=== PATIENT | female | born 1930 | race Caucasian/White ===

== ENCOUNTER 2022-01-10 16:15 | Inpatient (IN) | payer MEDICARE ==
[2022-01-10 16:51] LABS: #Monocytes 1.3 10x3/uL (0.0-1.1); #Neutrophils 12.6 10x3/uL (1.5-8.4); %Basophils 0.1 % (0.0-2.0); %Monocytes 8.4 % (0.0-10.0); Hemoglobin 11.7 g/dL (12.0-15.5); Mean Corpuscular HGB CONC 31.5 g/dL (32.0-36.0); Mean Corpuscular Hemoglobin 29.3 pg (27.0-33.0); Mean Platelet Volume 9.6 fl (7.4-10.4); Platelet Count 240 10x3/uL (150-450); RBC Distribution Width 13.2 % (11.5-14.5); White Blood Cell (WBC) Count 15.2 10x3/uL (3.5-10.5)
[2022-01-10 17:01] LABS: Anion Gap 16 mmol/L (10-20); BUN (Urea Nitrogen) 20 mg/dL (9.8-20.1); Calc. Creatinine Clearance 0 mL/min (70-130); Carbon Dioxide 25 mmol/L (23-31); Chloride 97 mmol/L (98-107); Potassium 4.7 mmol/L (3.5-5.1); Sodium 133 mmol/L (136-145)
[2022-01-10 17:02] LABS: ALT (SGPT) 26 U/L (8-55); AST (SGOT) 33 U/L (5-34); Albumin 4.2 g/dL (3.4-4.8); Alkaline Phosphatase 126 U/L (40-110); Bilirubin, Total 0.6 mg/dL (0.2-1.2); Calcium 9.9 mg/dL (7.8-10.44); Globulin 2.6 g/dL (2.4-3.5); Glucose 167 mg/dL (83-110); Protein, Total 6.8 g/dL (5.8-8.1)
[2022-01-10 17:36] LABS: Magnesium 2.1 mg/dL (1.6-2.6)
[2022-01-10 18:05] LABS: CKMB 3.4 ng/mL (0-6.6)
[2022-01-10] MEDS ORDERED: Furosemide 40 MG/4 ML VIAL ONE (18:11)
[2022-01-10] MEDS ORDERED: Enoxaparin Sodium 100 MG/ML SYRINGE ONE (18:25)
[2022-01-10] MEDS ORDERED: Nitroglycerin 0.4 MG TAB (25 Tab Bottle) SL PRN (20:35)
[2022-01-10 20:45] VITALS: BMI 31.4
[2022-01-10] MEDS ORDERED: Aspirin 325 MG TAB PO SCH (21:00)
[2022-01-10 21:17] LABS: Troponin I 0.426 ng/mL (< 0.028)
[2022-01-10 21:26] LABS: Magnesium 2.2 mg/dL (1.6-2.6)
[2022-01-10] MEDS ORDERED: Furosemide 40 MG/4 ML VIAL SLOW IVP SCH (21:30)
[2022-01-10] MEDS: Sotalol HCl 80 MG TAB PO SCH (21:32)
[2022-01-10] MEDS: Simvastatin 10 MG TAB PO SCH (21:33)
[2022-01-10] MEDS: Azelastine 137 MCG/Spray 30 ML NS SCH (21:33)
[2022-01-10] MEDS: Nitroglycerin 2% Ointment 1 INCH/1 GM Packet TOP SCH (21:58)
[2022-01-10 22:59] LABS: SARS-CoV-2 NAA Rapid Test Not Detected (NotDetected)
[2022-01-10 23:31] LABS: INR-International Normal Ratio 1.1; PTT 34.2 sec (22.0-33.0); Prothrombin Time 11.4 sec (9.5-12.1)
[2022-01-10 23:35] LABS: Troponin I 0.445 ng/mL (< 0.028)
[2022-01-11] MEDS ORDERED: Furosemide 40 MG/4 ML VIAL SLOW IVP SCH
[2022-01-11 05:23] LABS: #Monocytes 1.3 10x3/uL (0.0-1.1); #Neutrophils 6.4 10x3/uL (1.5-8.4); %Basophils 0.2 % (0.0-2.0); %Eosinophils 0.1 % (0.0-6.0); %Lymphocytes 19.3 % (18.0-47.0); %Monocytes 13.6 % (0.0-10.0); %Neutrophils 66.3 % (40.0-75.0); Hemoglobin 10.4 g/dL (12.0-15.5); Mean Corpuscular HGB CONC 32.9 g/dL (32.0-36.0); Mean Corpuscular Volume 91.1 fl (81.6-98.3); Mean Platelet Volume 9.7 fl (7.4-10.4); Platelet Count 190 10x3/uL (150-450); RBC Distribution Width 13.3 % (11.5-14.5); Red Blood Cell (RBC) Count 3.47 10x6/uL (3.90-5.03); White Blood Cell (WBC) Count 9.7 10x3/uL (3.5-10.5)
[2022-01-11 05:46] LABS: Anion Gap 15 mmol/L (10-20); BUN (Urea Nitrogen) 20 mg/dL (9.8-20.1); Calc. Creatinine Clearance 86 mL/min (70-130); Calcium 8.8 mg/dL (7.8-10.44); Carbon Dioxide 25 mmol/L (23-31); Chloride 100 mmol/L (98-107); Glucose 114 mg/dL (83-110); Potassium 3.9 mmol/L (3.5-5.1); Sodium 136 mmol/L (136-145)
[2022-01-11] MEDS: Enoxaparin Sodium 100 MG/ML SYRINGE SC SCH ×2 (05:55→15:53)
[2022-01-11] MEDS: Nitroglycerin 2% Ointment 1 INCH/1 GM Packet TOP SCH (06:07)
[2022-01-11] MEDS ORDERED: Losartan 25 MG TAB PO SCH (09:00)
[2022-01-11] MEDS: Sulfameth/Trimethoprim DS 800-160mg TAB PO SCH (09:53)
[2022-01-11] MEDS: Sotalol HCl 80 MG TAB PO SCH ×2 (09:53→20:47)
[2022-01-11] MEDS: Aspirin Chewable 81 MG TAB PO SCH ×2 (09:54→10:03)
[2022-01-11 12:02] LABS: Iron 28 ug/dL (50-170); Iron Binding Capacity, Total 280 mcg/dL (265-497)
[2022-01-11 14:56] LABS: Bilirubin Neg (Negative); Blood, Urine 10 (Negative); Clarity Clear (Clear); Glucose, Urine (Dipstick) Normal (Negative); Ketone, Urine Negative (Negative); Leukocyte 25 (Negative); Nitrite Negative (Negative); Protein, Urine (Dipstick) 15 mg/dl (Neg-Trace); Urobilinogen Normal mg/dL (Less than 2)
[2022-01-11 15:20] LABS: Bacteria/HPF 3+ HPF (None Seen); RBC/HPF 0-3 HPF (0-3); Squamous Epithelial 0-3 HPF (0-3); WBC/HPF 0-3 HPF (0-3)
[2022-01-11 15:21] LABS: Urine Culture Reflex Yes Yes
[2022-01-11] MEDS ORDERED: Enoxaparin Sodium 100 MG/ML SYRINGE ONE ×2 (15:47)
[2022-01-11] MEDS: Carvedilol 3.125 MG TAB PO SCH (15:51)
[2022-01-11 17:22] LABS: Vitamin D, 25 Hydroxy 33.7 ng/ml (> 30.0)
[2022-01-11] MEDS ORDERED: Promethazine 25 MG TAB PO SCH (20:00)
[2022-01-11] MEDS: Simvastatin 10 MG TAB PO SCH (20:48)
[2022-01-11] MEDS: Azelastine 137 MCG/Spray 30 ML NS SCH (20:49)
[2022-01-11] MEDS: Fluticasone Propionate Nasal Spray 16 gm Bottle NASAL SCH (21:08)
[2022-01-12] MEDS ORDERED: Furosemide 20 MG/2 ML VIAL SLOW IVP SCH (06:00)
[2022-01-12] MEDS: Enoxaparin Sodium 100 MG/ML SYRINGE SC SCH ×2 (06:33→16:49)
[2022-01-12] MEDS: Levothyroxine Sodium 50 MCG TAB PO SCH (06:34)
[2022-01-12] MEDS: Carvedilol 3.125 MG TAB PO SCH ×2 (09:01→16:49)
[2022-01-12] MEDS: Sulfameth/Trimethoprim DS 800-160mg TAB PO SCH (09:01)
[2022-01-12] MEDS: Sotalol HCl 80 MG TAB PO SCH ×2 (09:02→20:41)
[2022-01-12] MEDS: Aspirin Chewable 81 MG TAB PO SCH (09:03)
[2022-01-12] MEDS ORDERED: Iron Sucrose Complex 200 MG in Sodium Chloride 0.9% 100 ML IVPB SCH (09:30)
[2022-01-12] MEDS: Iron, Sodium Ferric Gluconate 250 MG in Sodium Chloride 0.9% 250 ML 250 ML IVPB SCH ×2 (12:16→15:16)
[2022-01-12 14:56] LABS: Hemoglobin 10.5 g/dL (12.0-15.5); Mean Corpuscular HGB CONC 32.2 g/dL (32.0-36.0); Mean Corpuscular Hemoglobin 29.5 pg (27.0-33.0); Mean Corpuscular Volume 91.6 fl (81.6-98.3); Platelet Count 194 10x3/uL (150-450); Red Blood Cell (RBC) Count 3.56 10x6/uL (3.90-5.03); White Blood Cell (WBC) Count 10.1 10x3/uL (3.5-10.5)
[2022-01-12 15:18] LABS: ALT (SGPT) 23 U/L (8-55); AST (SGOT) 26 U/L (5-34); Albumin 3.4 g/dL (3.4-4.8); Alkaline Phosphatase 95 U/L (40-110); Anion Gap 14 mmol/L (10-20); BUN (Urea Nitrogen) 28 mg/dL (9.8-20.1); Bilirubin, Total 0.5 mg/dL (0.2-1.2); Calc. Creatinine Clearance 76 mL/min (70-130); Calcium 8.7 mg/dL (7.8-10.44); Carbon Dioxide 27 mmol/L (23-31); Chloride 98 mmol/L (98-107); Globulin 2.7 g/dL (2.4-3.5); Glucose 135 mg/dL (83-110); Potassium 4.3 mmol/L (3.5-5.1); Protein, Total 6.1 g/dL (5.8-8.1); Sodium 135 mmol/L (136-145)
[2022-01-12] MEDS ORDERED: Iron, Sodium Ferric Gluconate 250 MG in Sodium Chloride 0.9% 250 ML 250 ML IVPB SCH (15:30)
[2022-01-12] MEDS ORDERED: Polyethylene Glycol 3350 17 GM Packet PO PRN (15:41)
[2022-01-12] MEDS ORDERED: cefTRIAXone\\ROCEPHIN 1 GM in Sodium Chloride 0.9% 100 ML IVPB SCH (16:00)
[2022-01-12] MEDS ORDERED: Polyethylene Glycol 3350 17 GM Packet PO SCH (16:00)
[2022-01-12] MEDS: Ondansetron ODT 4 MG TAB PO PRN (16:46)
[2022-01-12] MEDS: Furosemide 20 MG/2 ML VIAL SLOW IVP SCH (16:47)
[2022-01-12] MEDS: Azelastine 137 MCG/Spray 30 ML NS SCH (20:40)
[2022-01-12] MEDS: Fluticasone Propionate Nasal Spray 16 gm Bottle NASAL SCH (20:40)
[2022-01-12] MEDS: Simethicone Chewable 80 MG TAB PO SCH (20:41)
[2022-01-12] MEDS: Simvastatin 10 MG TAB PO SCH (20:41)
[2022-01-12] MEDS: cefTRIAXone\\ROCEPHIN 1 GM in Sodium Chloride 0.9% 100 ML IVPB SCH (20:42)
[2022-01-12] MEDS ORDERED: Floranex 1 GM Packet PO SCH (21:00)
[2022-01-12] MEDS ORDERED: LACTINEX 1 TAB PO SCH (21:45)
[2022-01-13 05:05] LABS: #Eosinphils 0.1 10x3/uL (0.0-0.5); #Monocytes 0.9 10x3/uL (0.0-1.1); #Neutrophils 5.4 10x3/uL (1.5-8.4); %Basophils 0.3 % (0.0-2.0); %Eosinophils 0.8 % (0.0-6.0); %Lymphocytes 16.5 % (18.0-47.0); %Monocytes 11.6 % (0.0-10.0); %Neutrophils 70.3 % (40.0-75.0); Hemoglobin 10.6 g/dL (12.0-15.5); Mean Corpuscular HGB CONC 32.5 g/dL (32.0-36.0); Mean Corpuscular Hemoglobin 30.1 pg (27.0-33.0); Mean Corpuscular Volume 92.6 fl (81.6-98.3); Mean Platelet Volume 10.3 fl (7.4-10.4); Platelet Count 181 10x3/uL (150-450); RBC Distribution Width 13.1 % (11.5-14.5); Red Blood Cell (RBC) Count 3.52 10x6/uL (3.90-5.03); White Blood Cell (WBC) Count 7.7 10x3/uL (3.5-10.5)
[2022-01-13 05:20] LABS: Anion Gap 15 mmol/L (10-20); BUN (Urea Nitrogen) 26 mg/dL (9.8-20.1); Calc. Creatinine Clearance 79 mL/min (70-130); Calcium 8.5 mg/dL (7.8-10.44); Carbon Dioxide 28 mmol/L (23-31); Chloride 99 mmol/L (98-107); Glucose 110 mg/dL (83-110); Potassium 3.7 mmol/L (3.5-5.1); Sodium 138 mmol/L (136-145)
[2022-01-13] MEDS: Furosemide 20 MG/2 ML VIAL SLOW IVP SCH (05:59)
[2022-01-13] MEDS: Levothyroxine Sodium 50 MCG TAB PO SCH (05:59)
[2022-01-13] MEDS: Enoxaparin Sodium 100 MG/ML SYRINGE SC SCH ×2 (06:00→19:17)
[2022-01-13] MEDS: LACTINEX 1 TAB PO SCH ×2 (08:45→20:50)
[2022-01-13] MEDS: Aspirin Chewable 81 MG TAB PO SCH (08:45)
[2022-01-13] MEDS: Polyethylene Glycol 3350 17 GM Packet PO SCH (08:45)
[2022-01-13] MEDS: Carvedilol 3.125 MG TAB PO SCH ×2 (08:45→17:15)
[2022-01-13] MEDS: Sotalol HCl 80 MG TAB PO SCH ×2 (08:46→20:50)
[2022-01-13] MEDS: Simethicone Chewable 80 MG TAB PO SCH ×3 (08:46→19:17)
[2022-01-13] MEDS ORDERED: Potassium Chloride 20 MEQ TAB PO SCH (12:00)
[2022-01-13] MEDS ORDERED: Spironolactone 25 MG TAB PO SCH (12:00)
[2022-01-13] MEDS ORDERED: Furosemide 20 MG TAB PO SCH (14:00)
[2022-01-13] MEDS: Ondansetron ODT 4 MG TAB PO PRN (19:17)
[2022-01-13] MEDS: cefTRIAXone\\ROCEPHIN 1 GM in Sodium Chloride 0.9% 100 ML IVPB SCH (20:49)
[2022-01-13] MEDS: Simvastatin 10 MG TAB PO SCH (20:50)
[2022-01-13] MEDS: Azelastine 137 MCG/Spray 30 ML NS SCH (21:13)
[2022-01-13] MEDS: Fluticasone Propionate Nasal Spray 16 gm Bottle NASAL SCH (21:13)
[2022-01-14 04:37] LABS: #Eosinphils 0.1 10x3/uL (0.0-0.5); #Monocytes 0.9 10x3/uL (0.0-1.1); #Neutrophils 6.1 10x3/uL (1.5-8.4); %Basophils 0.3 % (0.0-2.0); %Lymphocytes 17.3 % (18.0-47.0); %Monocytes 10.2 % (0.0-10.0); %Neutrophils 70.9 % (40.0-75.0); Hemoglobin 10.5 g/dL (12.0-15.5); Mean Corpuscular HGB CONC 32.4 g/dL (32.0-36.0); Mean Corpuscular Volume 92.6 fl (81.6-98.3); Mean Platelet Volume 10.3 fl (7.4-10.4); Platelet Count 177 10x3/uL (150-450); White Blood Cell (WBC) Count 8.6 10x3/uL (3.5-10.5)
[2022-01-14 04:39] LABS: Anion Gap 14 mmol/L (10-20); BUN (Urea Nitrogen) 24 mg/dL (9.8-20.1); Calc. Creatinine Clearance 81 mL/min (70-130); Calcium 8.5 mg/dL (7.8-10.44); Carbon Dioxide 25 mmol/L (23-31); Chloride 97 mmol/L (98-107); Glucose 118 mg/dL (83-110); Potassium 4.1 mmol/L (3.5-5.1); Sodium 132 mmol/L (136-145)
[2022-01-14] MEDS ORDERED: Furosemide 20 MG TAB PO SCH ×2 (05:45→14:00)
[2022-01-14] MEDS ORDERED: Spironolactone 25 MG TAB PO SCH ×2 (05:45→08:00)
[2022-01-14] MEDS: Enoxaparin Sodium 100 MG/ML SYRINGE SC SCH ×2 (06:15→18:24)
[2022-01-14] MEDS: Carvedilol 3.125 MG TAB PO SCH ×2 (08:31→18:02)
[2022-01-14] MEDS: Aspirin Chewable 81 MG TAB PO SCH (08:31)
[2022-01-14] MEDS: LACTINEX 1 TAB PO SCH (08:31)
[2022-01-14] MEDS: Simethicone Chewable 80 MG TAB PO SCH ×2 (08:31→14:59)
[2022-01-14] MEDS: Ondansetron ODT 4 MG TAB PO PRN (08:32)
[2022-01-14] MEDS: Polyethylene Glycol 3350 17 GM Packet PO SCH (08:32)
[2022-01-14] MEDS: Azelastine 137 MCG/Spray 30 ML NS SCH (08:32)
[2022-01-14] MEDS: Sotalol HCl 80 MG TAB PO SCH (08:32)
[2022-01-14] MEDS ORDERED: Bisacodyl 10 MG SUPP PR SCH (11:45)
[2022-01-14] MEDS: Ipratropium Bromide 0.06% Nasal Inhaler 15ml EA NARE SCH ×3 (15:00)
[2022-01-14 17:45] VITALS: BP 111/54; TEMP 96.9
[2022-01-15] MEDS ORDERED: Spironolactone 25 MG TAB PO SCH (08:00)
== END 2022-01-14 19:58 | DRG 689 ==
LOC: CSHERS 16:15 → CSHTELE 19:48
PROVIDERS: ADMIT Family Medicine; ATTEND Hospitalist
DX: N12 Tubulo-interstitial nephritis, not specified as acute or chronic (principal); I50.33 Acute on chronic diastolic (congestive) heart failure; I21.A1 Myocardial infarction type 2; Z16.24 Resistance to multiple antibiotics; K56.7 Ileus, unspecified; I11.0 Hypertensive heart disease with heart failure; N39.0 Urinary tract infection, site not specified; E03.9 Hypothyroidism, unspecified; E78.5 Hyperlipidemia, unspecified; Z96.651 Presence of right artificial knee joint; K21.9 Gastro-esophageal reflux disease without esophagitis; I48.0 Paroxysmal atrial fibrillation; I25.10 Atherosclerotic heart disease of native coronary artery without angina pectoris; J45.909 Unspecified asthma, uncomplicated; E78.2 Mixed hyperlipidemia; R73.03 Prediabetes; D50.9 Iron deficiency anemia, unspecified; B96.20 Unspecified Escherichia coli [E. coli] as the cause of diseases classified elsewhere; K59.00 Constipation, unspecified; Z20.822 Contact with and (suspected) exposure to COVID-19; Z95.2 Presence of prosthetic heart valve; Z88.8 Allergy status to other drugs, medicaments and biological substances; I25.2 Old myocardial infarction; Z86.73 Personal history of transient ischemic attack (TIA), and cerebral infarction without residual deficits; Z90.710 Acquired absence of both cervix and uterus; Z90.49 Acquired absence of other specified parts of digestive tract; Z98.42 Cataract extraction status, left eye; Z98.41 Cataract extraction status, right eye; Z98.890 Other specified postprocedural states
CPT/HCPCS: 36415; 71045; 74176; 80048; 80053; 81001; 82306; 82553; 82607; 82746; 83540; 83550; 83690; 83735; 83880; 84443; 84484; 85025; 85027; 85610; 85730; 87077; 87086; 87186; 93005; 93010; 93306; 94760; 96372; 96374; 97139; J0696; J1650; J1940; J2916; J3490; J7050; Q0162; Q0169; U0002

== ENCOUNTER 2022-01-29 00:33 | Inpatient (IN) | payer MEDICARE ==
[2022-01-29] MEDS ORDERED: Nitroglycerin 0.4 MG TAB 1 EACH ONE (00:58)
[2022-01-29] MEDS ORDERED: Nitroglycerin 2% Ointment 1 INCH/1 GM Packet ONE (01:00)
[2022-01-29] MEDS ORDERED: Furosemide 40 MG/4 ML VIAL ONE (01:00)
[2022-01-29 01:12] LABS: Actual Bicarbonate (HCO3v) 30 mEq/L (22-28); Base Excess 5.4 mEq/L (-2.0 to +3.0); Calcium, Ionized (venous) 1.12 mmol/L (1.16-1.32); Chloride (VBG) 90 mmol/L (98-106); Potassium (VBG) 3.86 mmol/L (3.70-5.30); Puncture Site Other Site; Sodium 123.7 mmol/L (133-146); pH (venous) 7.44 (7.32-7.43)
[2022-01-29 01:19] LABS: ALT (SGPT) 21 U/L (8-55); AST (SGOT) 30 U/L (5-34); Albumin 3.5 g/dL (3.4-4.8); Alkaline Phosphatase 87 U/L (40-110); Anion Gap 17 mmol/L (10-20); BUN (Urea Nitrogen) 12 mg/dL (9.8-20.1); Bilirubin, Total 0.5 mg/dL (0.2-1.2); Calc. Creatinine Clearance 0 mL/min (70-130); Calcium 8.9 mg/dL (7.8-10.44); Carbon Dioxide 26 mmol/L (23-31); Chloride 90 mmol/L (98-107); Globulin 2.2 g/dL (2.4-3.5); Glucose 127 mg/dL (83-110); Potassium 4.4 mmol/L (3.5-5.1); Protein, Total 5.7 g/dL (5.8-8.1); Sodium 129 mmol/L (136-145)
[2022-01-29 01:33] LABS: #Eosinphils 0.1 10x3/uL (0.0-0.5); #Monocytes 0.8 10x3/uL (0.0-1.1); #Neutrophils 7.3 10x3/uL (1.5-8.4); %Basophils 0.2 % (0.0-2.0); %Lymphocytes 12.6 % (18.0-47.0); %Neutrophils 77.7 % (40.0-75.0); Mean Corpuscular HGB CONC 34.2 g/dL (32.0-36.0); Mean Corpuscular Hemoglobin 30.9 pg (27.0-33.0); Mean Corpuscular Volume 90.4 fl (81.6-98.3); Mean Platelet Volume 10.6 fl (7.4-10.4); Platelet Count 152 10x3/uL (150-450); RBC Distribution Width 13.7 % (11.5-14.5); Red Blood Cell (RBC) Count 3.56 10x6/uL (3.90-5.03); White Blood Cell (WBC) Count 9.4 10x3/uL (3.5-10.5)
[2022-01-29 01:38] LABS: CKMB 3.3 ng/mL (0-6.6)
[2022-01-29 02:24] LABS: SARS-CoV-2 NAA Rapid Test Not Detected (NotDetected)
[2022-01-29] MEDS ORDERED: Guaifenesin DM 100-10/5 ML UDCUP PO PRN (02:25)
[2022-01-29] MEDS ORDERED: Acetaminophen 325 MG TAB PO PRN (02:25)
[2022-01-29] MEDS ORDERED: Calcium Carbonate 500 MG ChewTAB PO PRN (02:25)
[2022-01-29] MEDS ORDERED: Senokot S 8.6-50 MG TAB PO PRN (02:25)
[2022-01-29] MEDS ORDERED: Nitroglycerin 0.4 MG TAB (25 Tab Bottle) SL PRN (02:27)
[2022-01-29] MEDS ORDERED: Albuterol Sulfate 2.5 mg/3 ml Neb NEB PRN (02:30)
[2022-01-29 05:05] LABS: Anion Gap 16 mmol/L (10-20); BUN (Urea Nitrogen) 11 mg/dL (9.8-20.1); Calc. Creatinine Clearance 75 mL/min (70-130); Calcium 9.1 mg/dL (7.8-10.44); Carbon Dioxide 29 mmol/L (23-31); Chloride 91 mmol/L (98-107); Glucose 111 mg/dL (83-110); Potassium 3.9 mmol/L (3.5-5.1); Sodium 132 mmol/L (136-145)
[2022-01-29 05:23] LABS: CKMB 3.3 ng/mL (0-6.6)
[2022-01-29] MEDS: Levothyroxine Sodium 50 MCG TAB PO SCH (05:43)
[2022-01-29] MEDS: Ubidecarenone 50 MG CAP PO SCH ×2 (08:43→20:52)
[2022-01-29] MEDS: Carvedilol 3.125 MG TAB PO SCH ×2 (08:43→17:43)
[2022-01-29] MEDS: Sotalol HCl 80 MG TAB PO SCH ×2 (08:44→20:51)
[2022-01-29] MEDS: Calcium Carbonate 500 MG ChewTAB PO SCH ×2 (08:44→20:50)
[2022-01-29] MEDS: Stress 600 With Zinc 1 TAB PO SCH (08:44)
[2022-01-29] MEDS: Enoxaparin Sodium 40 MG/0.4 ML SYRINGE SC SCH (08:45)
[2022-01-29] MEDS: Aspirin Chewable 81 MG TAB PO SCH (08:45)
[2022-01-29] MEDS: Cholecalciferol 1,000 UNITS (25 MCG) TAB PO SCH (08:45)
[2022-01-29] MEDS: Polyethylene Glycol 3350 17 GM Packet PO SCH ×2 (08:45→11:28)
[2022-01-29] MEDS: Spironolactone 25 MG TAB PO SCH ×2 (08:48→11:28)
[2022-01-29 08:49] LABS: CKMB 2.7 ng/mL (0-6.6)
[2022-01-29] MEDS ORDERED: ASCORBATE CALCIUM PO SCH (09:00)
[2022-01-29] MEDS ORDERED: VIT E PO SCH (09:00)
[2022-01-29] MEDS ORDERED: GLUCOSAMINE SULFATE 1000 MG PO SCH (09:00)
[2022-01-29] MEDS ORDERED: VIT A PO SCH (09:00)
[2022-01-29] MEDS ORDERED: COPPER PO SCH (09:00)
[2022-01-29] MEDS ORDERED: [UNRECOGNIZED DRUG - OTHER] PO SCH (09:00)
[2022-01-29] MEDS ORDERED: [UNRECOGNIZED DRUG - OTHER] PO SCH (09:00)
[2022-01-29] MEDS ORDERED: ZINC PO SCH (09:00)
[2022-01-29] MEDS ORDERED: [UNRECOGNIZED DRUG - OTHER] PO SCH (09:00)
[2022-01-29] MEDS ORDERED: BIOFLAVONOID PO SCH (09:00)
[2022-01-29] MEDS ORDERED: VIT C PO SCH (09:00)
[2022-01-29] MEDS: Fluticasone Propionate Nasal Spray 16 gm Bottle NASAL SCH (11:27)
[2022-01-29] MEDS: Ondansetron PF 4 MG/2 ML Vial IVP PRN (12:46)
[2022-01-29] MEDS: Furosemide 40 MG/4 ML VIAL SLOW IVP SCH (15:05)
[2022-01-29] MEDS: Carvedilol 6.25 MG TAB PO SCH (20:52)
[2022-01-29] MEDS: Atorvastatin Calcium 10 MG TAB PO SCH (20:53)
[2022-01-30 04:54] LABS: Anion Gap 13 mmol/L (10-20); BUN (Urea Nitrogen) 14 mg/dL (9.8-20.1); Calc. Creatinine Clearance 82 mL/min (70-130); Calcium 8.9 mg/dL (7.8-10.44); Carbon Dioxide 35 mmol/L (23-31); Chloride 89 mmol/L (98-107); Glucose 112 mg/dL (83-110); Magnesium 1.9 mg/dL (1.6-2.6); Potassium 3.9 mmol/L (3.5-5.1); Sodium 133 mmol/L (136-145)
[2022-01-30] MEDS: Furosemide 40 MG/4 ML VIAL SLOW IVP SCH ×2 (05:24→15:03)
[2022-01-30] MEDS: Carvedilol 6.25 MG TAB PO SCH ×2 (08:50→20:27)
[2022-01-30] MEDS: Spironolactone 25 MG TAB PO SCH (08:50)
[2022-01-30] MEDS: Aspirin Chewable 81 MG TAB PO SCH (08:50)
[2022-01-30] MEDS: Cholecalciferol 1,000 UNITS (25 MCG) TAB PO SCH (08:50)
[2022-01-30] MEDS: Calcium Carbonate 500 MG ChewTAB PO SCH ×2 (08:50→20:28)
[2022-01-30] MEDS: Enoxaparin Sodium 40 MG/0.4 ML SYRINGE SC SCH (08:50)
[2022-01-30] MEDS: Sotalol HCl 80 MG TAB PO SCH ×2 (08:50→20:27)
[2022-01-30] MEDS: Polyethylene Glycol 3350 17 GM Packet PO SCH (08:50)
[2022-01-30] MEDS: Stress 600 With Zinc 1 TAB PO SCH (08:51)
[2022-01-30] MEDS: Ubidecarenone 50 MG CAP PO SCH ×2 (08:51→20:25)
[2022-01-30] MEDS: Fluticasone Propionate Nasal Spray 16 gm Bottle NASAL SCH (11:29)
[2022-01-30 15:56] LABS: Bilirubin Neg (Negative); Blood, Urine Negative (Negative); Clarity Clear (Clear); Glucose, Urine (Dipstick) Normal (Negative); Ketone, Urine Negative (Negative); Leukocyte Negative (Negative); Nitrite Negative (Negative); Protein, Urine (Dipstick) Negative (Neg-Trace); Specific Gravity, Urine 1.015 (1.002-1.036); Urobilinogen Normal mg/dL (Less than 2)
[2022-01-30 15:58] LABS: Bacteria/HPF Rare-Few HPF (None Seen); Creatinine, Urine 37.14 mg/dL (47-110); RBC/HPF 0-3 HPF (0-3); Squamous Epithelial 0-3 HPF (0-3); Urine Culture Reflex No No; WBC/HPF 0-3 HPF (0-3)
[2022-01-30] MEDS: Atorvastatin Calcium 10 MG TAB PO SCH (20:27)
[2022-01-31 04:29] LABS: #Eosinphils 0.1 10x3/uL (0.0-0.5); #Monocytes 0.9 10x3/uL (0.0-1.1); #Neutrophils 4.6 10x3/uL (1.5-8.4); %Basophils 0.3 % (0.0-2.0); %Eosinophils 1.4 % (0.0-6.0); %Lymphocytes 19.2 % (18.0-47.0); %Monocytes 12.3 % (0.0-10.0); %Neutrophils 66.5 % (40.0-75.0); Hemoglobin 10.2 g/dL (12.0-15.5); Mean Corpuscular HGB CONC 32.4 g/dL (32.0-36.0); Mean Corpuscular Hemoglobin 30.7 pg (27.0-33.0); Mean Corpuscular Volume 94.9 fl (81.6-98.3); Mean Platelet Volume 9.9 fl (7.4-10.4); Platelet Count 182 10x3/uL (150-450); Red Blood Cell (RBC) Count 3.32 10x6/uL (3.90-5.03); White Blood Cell (WBC) Count 6.9 10x3/uL (3.5-10.5)
[2022-01-31 04:41] LABS: Anion Gap 13 mmol/L (10-20); BUN (Urea Nitrogen) 13 mg/dL (9.8-20.1); Calc. Creatinine Clearance 85 mL/min (70-130); Calcium 8.5 mg/dL (7.8-10.44); Carbon Dioxide 36 mmol/L (23-31); Chloride 90 mmol/L (98-107); Glucose 115 mg/dL (83-110); Magnesium 1.8 mg/dL (1.6-2.6); Potassium 3.8 mmol/L (3.5-5.1); Sodium 135 mmol/L (136-145)
[2022-01-31] MEDS: Furosemide 40 MG/4 ML VIAL SLOW IVP SCH ×2 (05:07→16:15)
[2022-01-31] MEDS: Levothyroxine Sodium 50 MCG TAB PO SCH (05:07)
[2022-01-31] MEDS ORDERED: Magnesium 2 GM/50 ML(in water) 2 GM in Premix Bag 1 BAG IVPB SCH (08:00)
[2022-01-31] MEDS ORDERED: Potassium Chloride 20 MEQ TAB PO SCH (08:00)
[2022-01-31] MEDS: Calcium Carbonate 500 MG ChewTAB PO SCH ×2 (09:09→20:30)
[2022-01-31] MEDS: Ondansetron PF 4 MG/2 ML Vial IVP PRN ×2 (09:09→17:40)
[2022-01-31] MEDS: Enoxaparin Sodium 40 MG/0.4 ML SYRINGE SC SCH (09:09)
[2022-01-31] MEDS: Fluticasone Propionate Nasal Spray 16 gm Bottle NASAL SCH (09:09)
[2022-01-31] MEDS: Spironolactone 25 MG TAB PO SCH (09:09)
[2022-01-31] MEDS: Carvedilol 6.25 MG TAB PO SCH ×2 (09:09→20:31)
[2022-01-31] MEDS: Cholecalciferol 1,000 UNITS (25 MCG) TAB PO SCH (09:09)
[2022-01-31] MEDS: Aspirin Chewable 81 MG TAB PO SCH (09:09)
[2022-01-31] MEDS: Ubidecarenone 50 MG CAP PO SCH ×2 (09:10→20:30)
[2022-01-31] MEDS: Sotalol HCl 80 MG TAB PO SCH ×2 (09:10→20:33)
[2022-01-31] MEDS: Polyethylene Glycol 3350 17 GM Packet PO SCH (09:10)
[2022-01-31] MEDS: Stress 600 With Zinc 1 TAB PO SCH (09:10)
[2022-01-31] MEDS: Albumin 25% 25 GM/100 ML BOT IVPB SCH ×2 (16:15→20:34)
[2022-01-31] MEDS ORDERED: Spironolactone 25 MG TAB PO SCH (17:00)
[2022-01-31] MEDS: Atorvastatin Calcium 10 MG TAB PO SCH (20:33)
[2022-02-01 04:44] LABS: BUN (Urea Nitrogen) 12 mg/dL (9.8-20.1); Calc. Creatinine Clearance 82 mL/min (70-130); Calcium 8.7 mg/dL (7.8-10.44); Glucose 138 mg/dL (83-110); Magnesium 2.2 mg/dL (1.6-2.6)
[2022-02-01 04:50] LABS: #Eosinphils 0.1 10x3/uL (0.0-0.5); #Monocytes 0.8 10x3/uL (0.0-1.1); #Neutrophils 5.3 10x3/uL (1.5-8.4); %Basophils 0.1 % (0.0-2.0); %Lymphocytes 14.5 % (18.0-47.0); %Monocytes 11.2 % (0.0-10.0); %Neutrophils 72.9 % (40.0-75.0); Hemoglobin 9.7 g/dL (12.0-15.5); Mean Corpuscular HGB CONC 31.7 g/dL (32.0-36.0); Mean Corpuscular Hemoglobin 30.4 pg (27.0-33.0); Mean Corpuscular Volume 95.9 fl (81.6-98.3); Mean Platelet Volume 9.7 fl (7.4-10.4); Platelet Count 170 10x3/uL (150-450); Red Blood Cell (RBC) Count 3.19 10x6/uL (3.90-5.03); White Blood Cell (WBC) Count 7.2 10x3/uL (3.5-10.5)
[2022-02-01 04:51] LABS: Anion Gap 15 mmol/L (10-20); Carbon Dioxide 35 mmol/L (23-31); Chloride 89 mmol/L (98-107); Potassium 3.8 mmol/L (3.5-5.1); Sodium 135 mmol/L (136-145)
[2022-02-01] MEDS: Furosemide 40 MG/4 ML VIAL SLOW IVP SCH (05:33)
[2022-02-01] MEDS ORDERED: Furosemide 40 MG/4 ML VIAL ONE (07:12)
[2022-02-01] MEDS ORDERED: Vancomycin 1 GM in Premix Bag 1 BAG IVPB SCH (07:30)
[2022-02-01 07:41] LABS: #Monocytes 0.6 10x3/uL (0.0-1.1); #Neutrophils 7.9 10x3/uL (1.5-8.4); %Basophils 0.2 % (0.0-2.0); %Eosinophils 0.3 % (0.0-6.0); %Lymphocytes 8.3 % (18.0-47.0); %Monocytes 6.6 % (0.0-10.0); %Neutrophils 84.3 % (40.0-75.0); Hemoglobin 10.6 g/dL (12.0-15.5); Mean Corpuscular HGB CONC 30.7 g/dL (32.0-36.0); Mean Corpuscular Hemoglobin 30.3 pg (27.0-33.0); Mean Corpuscular Volume 98.6 fl (81.6-98.3); Mean Platelet Volume 9.7 fl (7.4-10.4); Platelet Count 222 10x3/uL (150-450); RBC Distribution Width 13.9 % (11.5-14.5); White Blood Cell (WBC) Count 9.4 10x3/uL (3.5-10.5)
[2022-02-01 07:52] LABS: ALT (SGPT) 58 U/L (8-55); AST (SGOT) 62 U/L (5-34); Albumin 3.9 g/dL (3.4-4.8); Alkaline Phosphatase 77 U/L (40-110); Anion Gap 16 mmol/L (10-20); BUN (Urea Nitrogen) 14 mg/dL (9.8-20.1); Bilirubin, Direct 0.4 mg/dL (0.1-0.3); Bilirubin, Total 0.7 mg/dL (0.2-1.2); Calc. Creatinine Clearance 70 mL/min (70-130); Calcium 8.7 mg/dL (7.8-10.44); Carbon Dioxide 35 mmol/L (23-31); Chloride 89 mmol/L (98-107); Globulin 1.8 g/dL (2.4-3.5); Glucose 198 mg/dL (83-110); Magnesium 2.2 mg/dL (1.6-2.6); Potassium 4.4 mmol/L (3.5-5.1); Protein, Total 5.7 g/dL (5.8-8.1); Sodium 136 mmol/L (136-145)
[2022-02-01 07:53] LABS: Troponin I 0.036 ng/mL (< 0.028)
[2022-02-01] MEDS ORDERED: Cefepime 2 GM in Sodium Chloride 0.9% 100 ML IVPB SCH ×3 (08:00→20:00)
[2022-02-01] MEDS ORDERED: Norepinephrine 8 MG/0.9% NS 250 ML IVPB PRN (08:04)
[2022-02-01] MEDS ORDERED: Propofol 1,000 MG/100 ML VIAL IV ONE (08:06)
[2022-02-01] MEDS: Propofol 1,000 MG/100 ML VIAL IV PRN ×3 (08:12→22:57)
[2022-02-01] MEDS: Norepinephrine 8 MG/0.9% NS 250 ML IVPB SCH (08:14)
[2022-02-01] MEDS ORDERED: Morphine 2 MG/ML VIAL SLOW IVP PRN (08:15)
[2022-02-01] MEDS ORDERED: Propofol BOLUS 1,000 MG/100 ML VIAL IV PRN (08:15)
[2022-02-01] MEDS ORDERED: DISCONTINUE PREVIOUS NARCOTIC PAIN MEDICATIONS AND BENZODIAZEPINES FS SCH (08:15)
[2022-02-01] MEDS ORDERED: Ventilator Sedation Protocol 1 EACH FS SCH (08:15)
[2022-02-01] MEDS ORDERED: Fentanyl BOLUS 250 ML IVPB PRN (08:15)
[2022-02-01] MEDS ORDERED: Lorazepam 2 MG/ML VIAL SLOW IVP PRN (08:15)
[2022-02-01] MEDS ORDERED: Norepinephrine 8 MG/0.9% NS 250 ML ONE (08:16)
[2022-02-01] MEDS: Enoxaparin Sodium 40 MG/0.4 ML SYRINGE SC SCH (08:53)
[2022-02-01] MEDS: Pantoprazole 40 MG VIAL IVP SCH (08:54)
[2022-02-01] MEDS ORDERED: Vancomycin 1.5 GRAM/300 ML BAG 1.5 GM in Premix Bag 1 BAG IVPB SCH (09:30)
[2022-02-01] MEDS: Calcium Carbonate 500 MG ChewTAB PO SCH ×2 (11:05→20:39)
[2022-02-01] MEDS: Carvedilol 6.25 MG TAB PO SCH ×2 (11:05→20:51)
[2022-02-01] MEDS: Cholecalciferol 1,000 UNITS (25 MCG) TAB PO SCH (11:05)
[2022-02-01] MEDS: Aspirin Chewable 81 MG TAB PO SCH (11:05)
[2022-02-01] MEDS: Fluticasone Propionate Nasal Spray 16 gm Bottle NASAL SCH (11:06)
[2022-02-01] MEDS: Sotalol HCl 80 MG TAB PO SCH ×2 (11:06→20:40)
[2022-02-01] MEDS: Polyethylene Glycol 3350 17 GM Packet PO SCH (11:06)
[2022-02-01] MEDS: Stress 600 With Zinc 1 TAB PO SCH (11:07)
[2022-02-01] MEDS: Ubidecarenone 50 MG CAP PO SCH ×2 (11:07→22:57)
[2022-02-01 13:08] LABS: Actual Bicarbonate (HCO3a) 34.2 mEq/L (22-28); Base Excess (BEa) 12.3 mEq/L (-2.0 to +3.0); CO2 Tension 34.1 mmHg (35.0-45.0); Calcium, Ionized (arterial) 1.05 mmol/L (1.12-1.30); Carboxyhemoglobin (COHb) 0.9 gm% (0.0-3.0); Hemoglobin (Hb) 10.8 g/dL (12.0-16.0); O2 Tension (PaO2), arterial 68.8 mmHg (> 60.0); Potassium - ABG Lab 3.5 mmol/L (3.70-5.30); Puncture Site LRA; pH, Arterial 7.62 (7.35-7.45)
[2022-02-01 13:09] LABS: ALV-art Gradient 245.075 mmHg (0-20)
[2022-02-01] MEDS: Furosemide 100 MG/10 ML VIAL SLOW IVP SCH (13:44)
[2022-02-01 17:14] LABS: Legionella Urinary Ag Negative (Negative); Strep pneumo Urine Ag NEGATIVE (NEGATIVE)
[2022-02-01 17:28] LABS: Actual Bicarbonate (HCO3a) 38.7 mEq/L (22-28); Base Excess (BEa) 8.4 mEq/L (-2.0 to +3.0); CO2 Tension 93.2 mmHg (35.0-45.0); Calcium, Ionized (arterial) 1.16 mmol/L (1.12-1.30); Carboxyhemoglobin (COHb) 0.9 gm% (0.0-3.0); Hemoglobin (Hb) 11.2 g/dL (12.0-16.0); O2 Tension (PaO2), arterial 73.1 mmHg (> 60.0); Potassium - ABG Lab 4.1 mmol/L (3.70-5.30); Puncture Site RRA; pH, Arterial 7.24 (7.35-7.45)
[2022-02-01] MEDS ORDERED: acetaZOLAMIDE Sodium 500 mg Vial IVP SCH (19:30)
[2022-02-01] MEDS: Atorvastatin Calcium 10 MG TAB PO SCH (20:39)
[2022-02-01] MEDS: Cefepime 2 GM in Sodium Chloride 0.9% 100 ML IVPB SCH (20:40)
[2022-02-02] MEDS: Propofol 1,000 MG/100 ML VIAL IV PRN (03:56)
[2022-02-02] MEDS: Vancomycin HCl 1 GM in Sodium Chloride 0.9% 250 ML 250 ML IVPB SCH ×2 (03:56→21:32)
[2022-02-02 04:43] LABS: Anion Gap 17 mmol/L (10-20); BUN (Urea Nitrogen) 21 mg/dL (9.8-20.1); Calc. Creatinine Clearance 71 mL/min (70-130); Calcium 8.4 mg/dL (7.8-10.44); Carbon Dioxide 30 mmol/L (23-31); Chloride 92 mmol/L (98-107); Glucose 130 mg/dL (83-110); Magnesium 1.9 mg/dL (1.6-2.6); Sodium 136 mmol/L (136-145)
[2022-02-02 04:45] LABS: Potassium 2.8 mmol/L (3.5-5.1)
[2022-02-02] MEDS ORDERED: Electrolyte Replacement Protocol 1 EACH FS PRN (04:51)
[2022-02-02] MEDS ORDERED: Magnesium 2 GM/50 ML(in water) 2 GM in Premix Bag 1 BAG IVPB SCH (05:00)
[2022-02-02] MEDS: Potassium Bicarbonate/Cit Ac 20 MEQ TAB PO SCH ×2 (05:32→09:31)
[2022-02-02] MEDS: Furosemide 100 MG/10 ML VIAL SLOW IVP SCH ×2 (05:32→21:31)
[2022-02-02] MEDS: Levothyroxine Sodium 50 MCG TAB PO SCH (05:32)
[2022-02-02 06:12] LABS: #Monocytes 1.1 10x3/uL (0.0-1.1); #Neutrophils 8.4 10x3/uL (1.5-8.4); %Basophils 0.3 % (0.0-2.0); %Eosinophils 0.3 % (0.0-6.0); %Lymphocytes 14.3 % (18.0-47.0); %Monocytes 9.9 % (0.0-10.0); %Neutrophils 74.1 % (40.0-75.0); Hemoglobin 9.9 g/dL (12.0-15.5); Mean Corpuscular HGB CONC 33.8 g/dL (32.0-36.0); Mean Corpuscular Hemoglobin 30.9 pg (27.0-33.0); Mean Corpuscular Volume 91.6 fl (81.6-98.3); Mean Platelet Volume 10.6 fl (7.4-10.4); RBC Distribution Width 14.4 % (11.5-14.5); White Blood Cell (WBC) Count 11.3 10x3/uL (3.5-10.5)
[2022-02-02 06:13] LABS: Platelet Count 169 10x3/uL (150-450)
[2022-02-02] MEDS: Pantoprazole 40 MG VIAL IVP SCH (08:14)
[2022-02-02] MEDS: Cefepime 2 GM in Sodium Chloride 0.9% 100 ML IVPB SCH ×2 (08:14→21:33)
[2022-02-02] MEDS: Enoxaparin Sodium 40 MG/0.4 ML SYRINGE SC SCH (08:16)
[2022-02-02] MEDS ORDERED: Albumin 25% 25 GM/100 ML BOT IVPB SCH (09:15)
[2022-02-02] MEDS: Ubidecarenone 50 MG CAP PO SCH ×2 (09:30→21:30)
[2022-02-02] MEDS: Cholecalciferol 1,000 UNITS (25 MCG) TAB PO SCH (09:31)
[2022-02-02] MEDS: Aspirin Chewable 81 MG TAB PO SCH (09:31)
[2022-02-02] MEDS: Calcium Carbonate 500 MG ChewTAB PO SCH ×2 (09:31→21:32)
[2022-02-02] MEDS: Sotalol HCl 80 MG TAB PO SCH ×2 (09:32→23:05)
[2022-02-02] MEDS: Stress 600 With Zinc 1 TAB PO SCH (09:32)
[2022-02-02] MEDS: Fluticasone Propionate Nasal Spray 16 gm Bottle NASAL SCH (09:35)
[2022-02-02] MEDS: fentaNYL Citrate-0.9 % NaCl/PF 100 ML IVPB SCH ×2 (09:38→21:49)
[2022-02-02] MEDS ORDERED: Spironolactone 25 MG TAB PO SCH ×2 (10:00→15:30)
[2022-02-02 12:07] VITALS: BMI 29.3
[2022-02-02] MEDS: Polyethylene Glycol 3350 17 GM Packet PO SCH (13:18)
[2022-02-02] MEDS: Carvedilol 6.25 MG TAB PO SCH ×2 (13:18→21:30)
[2022-02-02 14:19] LABS: Potassium 3.1 mmol/L (3.5-5.1)
[2022-02-02] MEDS ORDERED: Potassium Bicarbonate/Cit Ac 20 MEQ TAB PER TUBE SCH (14:45)
[2022-02-02] MEDS: Norepinephrine 8 MG/0.9% NS 250 ML IVPB SCH (17:16)
[2022-02-02 19:37] LABS: Potassium 3.6 mmol/L (3.5-5.1)
[2022-02-02 19:43] LABS: Vancomycin, Trough 14.5 ug/mL
[2022-02-02] MEDS ORDERED: Sodium Chloride 0.9% 100 ML ONE (21:30)
[2022-02-02] MEDS: Atorvastatin Calcium 10 MG TAB PO SCH (21:30)
[2022-02-03 01:39] LABS: #Neutrophils 8.2 10x3/uL (1.5-8.4); %Basophils 0.3 % (0.0-2.0); %Eosinophils 0.4 % (0.0-6.0); %Lymphocytes 12.6 % (18.0-47.0); %Monocytes 9.4 % (0.0-10.0); %Neutrophils 76.9 % (40.0-75.0); Hemoglobin 9.3 g/dL (12.0-15.5); Mean Corpuscular HGB CONC 33.8 g/dL (32.0-36.0); Mean Corpuscular Hemoglobin 30.7 pg (27.0-33.0); Mean Corpuscular Volume 90.8 fl (81.6-98.3); Mean Platelet Volume 10.2 fl (7.4-10.4); Platelet Count 148 10x3/uL (150-450); RBC Distribution Width 14.6 % (11.5-14.5); Red Blood Cell (RBC) Count 3.03 10x6/uL (3.90-5.03); White Blood Cell (WBC) Count 10.7 10x3/uL (3.5-10.5)
[2022-02-03 02:11] LABS: Anion Gap 15 mmol/L (10-20); BUN (Urea Nitrogen) 23 mg/dL (9.8-20.1); Calc. Creatinine Clearance 67 mL/min (70-130); Calcium 8.4 mg/dL (7.8-10.44); Carbon Dioxide 30 mmol/L (23-31); Chloride 93 mmol/L (98-107); Glucose 164 mg/dL (83-110); Magnesium 2.3 mg/dL (1.6-2.6); Potassium 3.2 mmol/L (3.5-5.1); Sodium 135 mmol/L (136-145)
[2022-02-03] MEDS ORDERED: Potassium Chloride 20 MEQ in Premix Bag 1 BAG IVPB SCH ×2 (03:00→03:30)
[2022-02-03] MEDS ORDERED: Electrolyte Replacement Protocol 1 EACH FS SCH (03:30)
[2022-02-03] MEDS ORDERED: Potassium Chloride 20 MEQ TAB PO SCH (03:30)
[2022-02-03] MEDS ORDERED: Potassium Bicarbonate/Cit Ac 20 MEQ TAB PER TUBE SCH ×2 (03:45→10:00)
[2022-02-03 05:07] VITALS: TEMP 97
[2022-02-03] MEDS: Levothyroxine Sodium 50 MCG TAB PO SCH (05:38)
[2022-02-03] MEDS ORDERED: Rocuronium Bromide 10 MG/ML (10ML VIAL) ONE (07:00)
[2022-02-03] MEDS: Propofol 1,000 MG/100 ML VIAL IV PRN (07:31)
[2022-02-03] MEDS ORDERED: Spironolactone 25 MG TAB PO SCH (08:00)
[2022-02-03 08:22] LABS: Hemoglobin 9.9 g/dL (12.0-15.5); Mean Corpuscular HGB CONC 32.9 g/dL (32.0-36.0); Mean Corpuscular Hemoglobin 30.6 pg (27.0-33.0); Mean Corpuscular Volume 92.9 fl (81.6-98.3); Mean Platelet Volume 9.8 fl (7.4-10.4); Platelet Count 184 10x3/uL (150-450); RBC Distribution Width 14.6 % (11.5-14.5); Red Blood Cell (RBC) Count 3.24 10x6/uL (3.90-5.03); White Blood Cell (WBC) Count 12.9 10x3/uL (3.5-10.5)
[2022-02-03] MEDS: Pantoprazole 40 MG VIAL IVP SCH (08:24)
[2022-02-03] MEDS: Cefepime 2 GM in Sodium Chloride 0.9% 100 ML IVPB SCH (08:24)
[2022-02-03 08:28] LABS: Potassium 3.8 mmol/L (3.5-5.1)
[2022-02-03] MEDS: Sotalol HCl 80 MG TAB PO SCH (09:12)
[2022-02-03] MEDS: Ubidecarenone 50 MG CAP PO SCH (09:12)
[2022-02-03] MEDS: Enoxaparin Sodium 40 MG/0.4 ML SYRINGE SC SCH (09:12)
[2022-02-03] MEDS: Carvedilol 6.25 MG TAB PO SCH (09:13)
[2022-02-03] MEDS: Cholecalciferol 1,000 UNITS (25 MCG) TAB PO SCH (09:13)
[2022-02-03] MEDS: Aspirin Chewable 81 MG TAB PO SCH (09:14)
[2022-02-03] MEDS: Furosemide 100 MG/10 ML VIAL SLOW IVP SCH (09:14)
[2022-02-03] MEDS: Calcium Carbonate 500 MG ChewTAB PO SCH (09:14)
[2022-02-03] MEDS: Fluticasone Propionate Nasal Spray 16 gm Bottle NASAL SCH (09:15)
[2022-02-03] MEDS: Polyethylene Glycol 3350 17 GM Packet PO SCH (09:24)
[2022-02-03] MEDS: Stress 600 With Zinc 1 TAB PO SCH (09:27)
[2022-02-03] MEDS: Norepinephrine 8 MG/0.9% NS 250 ML IVPB SCH (10:38)
[2022-02-03] MEDS: fentaNYL Citrate-0.9 % NaCl/PF 100 ML IVPB SCH (11:28)
[2022-02-03 18:20] VITALS: BP 101/40
== END 2022-02-03 17:40 | disposition expired ==
LOC: CSHERS 00:33 → CSHICU 03:19 → CSHTELE 12:12 → CSHICU 02-01 07:30
PROVIDERS: ADMIT Student in an Organized Health Care Education/Training Program; ATTEND Family Medicine
PROC: 5A09357 Assistance with Respiratory Ventilation, Less than 24 Consecutive Hours, Continuous Positive Airway Pressure (ICD-10-PCS; 2022-01-29)
PROC: 3E033XZ Introduction of Vasopressor into Peripheral Vein, Percutaneous Approach (ICD-10-PCS; principal; 2022-02-01)
PROC: 5A09357 Assistance with Respiratory Ventilation, Less than 24 Consecutive Hours, Continuous Positive Airway Pressure (ICD-10-PCS; 2022-02-01)
PROC: 0BH18EZ Insertion of Endotracheal Airway into Trachea, Via Natural or Artificial Opening Endoscopic (ICD-10-PCS; 2022-02-01)
PROC: 5A1945Z Respiratory Ventilation, 24-96 Consecutive Hours (ICD-10-PCS; 2022-02-01)
DX: I11.0 Hypertensive heart disease with heart failure (principal); J80 Acute respiratory distress syndrome; I21.A1 Myocardial infarction type 2; G93.41 Metabolic encephalopathy; J18.9 Pneumonia, unspecified organism; J69.0 Pneumonitis due to inhalation of food and vomit; I50.43 Acute on chronic combined systolic (congestive) and diastolic (congestive) heart failure; E87.1 Hypo-osmolality and hyponatremia; J91.8 Pleural effusion in other conditions classified elsewhere; E87.3 Alkalosis; I47.2 Ventricular tachycardia; Z51.5 Encounter for palliative care; Z66 Do not resuscitate; I27.20 Pulmonary hypertension, unspecified; I25.10 Atherosclerotic heart disease of native coronary artery without angina pectoris; K21.9 Gastro-esophageal reflux disease without esophagitis; E03.9 Hypothyroidism, unspecified; I48.0 Paroxysmal atrial fibrillation; E78.2 Mixed hyperlipidemia; E87.6 Hypokalemia; I49.3 Ventricular premature depolarization; I49.01 Ventricular fibrillation; K76.1 Chronic passive congestion of liver; R79.89 Other specified abnormal findings of blood chemistry; R73.03 Prediabetes; J45.909 Unspecified asthma, uncomplicated; D63.8 Anemia in other chronic diseases classified elsewhere; Z20.822 Contact with and (suspected) exposure to COVID-19; Z96.651 Presence of right artificial knee joint; Z95.2 Presence of prosthetic heart valve; Z90.49 Acquired absence of other specified parts of digestive tract; I25.2 Old myocardial infarction; Z90.710 Acquired absence of both cervix and uterus; Z98.890 Other specified postprocedural states; Z95.4 Presence of other heart-valve replacement; Z86.73 Personal history of transient ischemic attack (TIA), and cerebral infarction without residual deficits; Z88.8 Allergy status to other drugs, medicaments and biological substances; Z79.899 Other long term (current) drug therapy; Z79.82 Long term (current) use of aspirin; Z79.51 Long term (current) use of inhaled steroids; Z82.49 Family history of ischemic heart disease and other diseases of the circulatory system; Z98.49 Cataract extraction status, unspecified eye; Z87.440 Personal history of urinary (tract) infections; Z79.890 Hormone replacement therapy; Y95 Nosocomial condition
CPT/HCPCS: 36415; 36416; 36600; 71045; 80048; 80053; 80202; 81001; 82248; 82553; 82570; 82805; 83605; 83735; 83880; 83930; 83935; 84145; 84300; 84443; 84484; 84540; 85025; 87040; 87081; 87449; 87899; 93005; 93010; 93306; 94002; 94003; 94660; 94760; 96374; C9113; J0692; J1120; J1650; J1940; J1956; J2405; J2704; J3370; J3475; J3490; J7050; P9047; U0002